=== PATIENT | male | born 1995 | race Two or more races ===

== ENCOUNTER 2023-10-04 18:26 | Emergency (ER) | payer BC, OTHER ==
[~2023-10-04] VITALS: Ht 182.9 cm; Wt 85.6 kg
[2023-10-05] MEDS: CEPHALEXIN 250 MG CAP PO ONE (00:30)
[2023-10-05] MEDS: TETANUS-DIPTH-ACEL PERTUSSIS 0.5ML SYR Tdap IM ONE (00:30)
[2023-10-05] MEDS: MUPIROCIN 2% OINT 15gm or 22gm TOP ONE (00:30)
[2023-10-05] MEDS ORDERED: MUPI2OIN2 EX (00:32)
[2023-10-05] MEDS ORDERED: CEPH500C PO (00:32)
[2023-10-05] MEDS ORDERED: HYDR-4902 PO (00:32)
[2023-10-05 01:12] VITALS: BP 138/65; PULSE 67; RESP 20; TEMP 97.8; O2SAT 99
[2023-10-05] MEDS: HYDROcodone-ACET 5/325MG TAB PO ONE (01:22)
[2023-10-05] MEDS: KETOROLAC TROMETH 60MG/2ML VIAL IM ONE (01:23)
[2023-10-05] MEDS: DexAMETHasone SOD PHOS 10MG/1ML VIAL INJ IM ONE (01:23)
== END 2023-10-05 01:49 | disposition home or self-care (01) ==
LOC: ER 18:26
DX: S43.102A Unspecified dislocation of left acromioclavicular joint, initial encounter (principal); S40.012A Contusion of left shoulder, initial encounter; S80.11XA Contusion of right lower leg, initial encounter; Z79.899 Other long term (current) drug therapy; W18.39XA Other fall on same level, initial encounter; Y93.51 Activity, roller skating (inline) and skateboarding; Y92.89 Other specified places as the place of occurrence of the external cause; Y99.8 Other external cause status
CPT/HCPCS: 73030; 73590; 90471; 90715; 96372; 99284; J1100; J1885

== ENCOUNTER 2025-02-02 04:17 | Inpatient (IN) | payer BC ==
[~2025-02-02] VITALS: Ht 182.9 cm; Wt 82.0 kg
[2025-02-02] VITALS (7 sets, daily range): BP systolic 103–111; BP diastolic 47–64; PULSE 16–66; RESP 16–20; TEMP 97.3–98; O2SAT 96–97
[~2025-02-02 04:17] MED LIST: CEPH500C PO; HYDR-4902 PO; MUPI2OIN2 EX
--- NOTE | 2025-02-02 06:11 | DVH ---
EXAM: XR Chest, 1 View CLINICAL INDICATION: Pain TECHNIQUE: Frontal view of the chest. COMPARISON: No relevant prior studies available. FINDINGS: LUNGS AND PLEURAL SPACES: Unremarkable. No consolidation. No pneumothorax. HEART: Unremarkable. No cardiomegaly. MEDIASTINUM: Unremarkable. Normal mediastinal contour. BONES/JOINTS: Unremarkable. No acute fracture. IMPRESSION: No acute cardiopulmonary process.
[2025-02-02 06:23] LABS: Hematocrit 38.9 % (41.0-53.0); Hemoglobin 13.9 g/dL (13.5-17.5); Mean Corpuscular Hemoglobin 31.2 pg (28.0-32.0); Mean Corpuscular Volume 87.4 fL (80.0-100.0); Nucleated Red Blood Cells % 0.0 %
[2025-02-02 06:26] LABS: Chloride 104 mmol/L (98-107); Potassium 4.1 mmol/L (3.5-5.1); Sodium 140 mmol/L (136-145)
[2025-02-02 06:27] LABS: Anion Gap 8 (5-15); Calcium 10.0 mg/dL (8.7-10.4); Carbon Dioxide 28 mmol/L (20-31)
[2025-02-02 06:32] LABS: BUN/Creatinine Ratio 14.8 (10.0-20.0); Blood Urea Nitrogen 19 mg/dL (9-23); Glucose 94 mg/dL (74-106)
--- NOTE | 2025-02-02 06:59 | ED.PDOC ---
History of Present Illness HPI Comments 29-year-old male presents to the ER with prior surgical history of appendectomy in the chief complaint of chest pain for two weeks. Patient reports that the chest pain has been on and off and mostly tolerable, during the two weeks. Patient states that he went to urgent care two weeks ago with x-ray and labs, has a follow up appointment tomorrow at 02/03/2025. Patient states that he is currently here due from having an onset of chest pain this morning at work on the left side of the chest. Denies chills, fever, N/V/D, SOB. No other associated symptoms, modifiers, recent injuries or sick contacts present at this time. Chief Complaint: Chest Pain Time Seen by MD: 06:35 Reviewed Notes: Nurses Notes, Medications, Allergies Allergies: Coded Allergies: NO KNOWN ALLERGIES (Unverified , 10/04/23) Home Meds Active Scripts Mupirocin (Pseudomonas Fluores (Mupirocin) 2 % Oin, 1 APPLIC EX TID for 10 Days, #15 MG Prov:LIANGMARKALDA Q ELECTRICAL LOGGING ENGINEER 10/05/23 Hydrocodone-Acetaminophen (Hydrocodone Bitartrate/AC 5-325 mg) 1 Tab Tab, 1 TAB PO Q6HPRN PRN, #10 TAB Prov:LIANGNORALDA Q [employer]LECTRICAL LOGGING ENGINEER 10/05/23 Cephalexin Monohydrate (Cephalexin) 500 Mg Cap, 1 CAP PO QID for 10 Days, #40 CAP Prov:LIANGNORALDA Q ELECTRICAL LOGGING ENGINEER 10/05/23 Information Source: Patient Mode of Arrival: Ambulatory Severity: Moderate Timing: Weeks Duration: Since onset Prehospital treatment: None Past Medical History PAST MEDICAL HISTORY: Denies Surgical History: Appendectomy Family History Family History: Reviewed,noncontributory to illness, Unknown Social History Smoker: Non-Smoker Alcohol: Denies ETOH Use Drugs: Denies Drug Use Lives In: Home Constitutional: denies: chills, diaphoresis, fatigue, fever, malaise, sweats, weakness, others EENTM: denies: blurred vision, double vision, ear bleeding, ear discharge, ear drainage, ear pain, ear ringing, eye pain, eye redness, hearing loss, mouth pain, mouth swelling, nasal discharge, nose bleeding, nose congestion, nose pain, photophobia, tearing, throat pain, throat swelling, voice changes, others Respiratory: denies: cough, hemoptysis, orthopnea, SOB at rest, shortness of breath, SOB with excertion, stridor, wheezing, others Cardiovascular: reports: chest pain (For two weeks, on and off); denies: dizzy spells, diaphoresis, Dyspnea on exertion, edema, irregular heart beat, left arm pain, lightheadedness, palpitations, PND, syncope, others Gastrointestinal: denies: abdomen distended, abdominal pain, blood streaked bowels, constipated, diarrhea, dysphagia, difficulty swallowing, hematemesis, melena, nausea, poor appetite, poor fluid intake, rectal bleeding, rectal pain, vomiting, others Genitourinary: denies: burning, dysuria, flank pain, frequency, hematuria, incontinence, penile discharge, penile sore, pain, testicle pain, testicle swelling, urgency, others Neurological: denies: dizziness, fainting, headache, left sided numbness, left sided weakness, numbness, paresthesia, pre-existing deficit, right sided numbness, right sided weakness, seizure, speech problems, tingling, tremors, weakness, others Musculoskeletal: denies: back pain, gout, joint pain, joint swelling, muscle pain, muscle stiffness, neck pain, others Integumetry: denies: bruises, change in color, change in hair/nails, dryness, laceration, lesions, lumps, rash, wounds, others Allergic/Immunocompromised: denies: Difficulty Healing, Frequent Infections, Hives, Itching, others Hematologic/Lymphatic: denies: anemia, blood clots, easy bleeding, easy bruising, swollen glands, others Endocrine: denies: excessive hunger, excessive sweating, excessive thirst, excessive urination, flushing, intolerance to cold, intolerance to heat, unexplained weight gain, unexplained weight loss, others Psychiatric: denies: anxiety, bipolar disorder, depression, hopeless, panic disorder, schizophrenia, sleepless, suicidal, others All Other Systems: Reviewed and Negative Physical Exam General Appearance: Moderate Distress, Normal HEENT: Normal ENT Inspection, Pharynx Normal, TMs Normal Neck: Full Range of Motion, Non-Tender, Normal, Normal Inspection Respiratory: Chest Non-Tender, Lungs Clear, No Accessory Muscle Use, No Respiratory Distress, Normal Breath Sounds Cardiovascular: No Edema, No JVD, No Murmur, No Gallop, Normal Peripheral Pulses, Regular Rate/Rhythm Breast Exam: Deferred Gastrointestinal: No Organomegaly, Non Tender, No Pulsatile Mass, Normal Bowel Sounds, Soft Genitalia: Deferred Pelvic: Deferred Rectal: Deferred Extremities: No calf tenderness, Normal capillary refill, Normal inspection, Normal range of motion, Non-tender, No pedal edema Musculoskeletal : Apperance: Normal Neurologic: Alert, dragger out II-XII nml as Tested, No Motor Deficits, Normal Affect, Normal Mood, No Sensory Deficits Cerebellar Function: Normal Reflexes: Normal Skin: Dry, Normal Color, Warm Peripheral Pulses: 3+ Radial (R), 3+ Radial (L) Lymphatic: No Adenopathy Was a procedure done? Was a procedure done?: No Differential Dx Considerations may include: Anemia Electrolyte imbalance X-Ray, Labs, Meds, VS Vital Signs Date Time Temp Pulse Resp B/P (MAP) Pulse Ox O2 Delivery O2 Flow Rate FiO2 02/02/25 07:36 54 02/02/25 07:36 98.7 54 17 110/64 (79) 100 98.7 02/02/25 04:26 55 02/02/25 04:25 98.6 59 20 119/64 (82) 100 98.6 Lab Test 02/02/25 05:24 02/02/25 04:30 Range/Units White Blood Count 4.7 4.4-10.8 10^3/uL Red Blood Count 4.45 L 4.5-5.90 10^6/uL Hemoglobin 13.9 13.5-17.5 g/dL Hematocrit 38.9 L 41.0-53.0 % Mean Corpuscular Volume 87.4 80.0-100.0 fL Mean Corpuscular Hemoglobin 31.2 28.0-32.0 pg Mean Corpuscular Hemoglobin Concent 35.7 32.0-36.0 g/dL Red Cell Distribution Width 13.4 11.8-14.3 % Platelet Count 198 140-450 10^3/uL Mean Platelet Volume 8.3 6.9-10.8 fL Neutrophils (%) (Auto) 60.4 37.0-80.0 % Lymphocytes (%) (Auto) 28.6 10.0-50.0 % Monocytes (%) (Auto) 9.4 0.0-12.0 % Eosinophils (%) (Auto) 0.7 0.0-7.0 % Basophils (%) (Auto) 0.9 0.0-2.0 % Neutrophils # (Auto) 2.8 1.6-8.6 10 ^3/uL Lymphocytes # (Auto) 1.3 0.4-5.4 10 ^3/uL Monocytes # (Auto) 0.4 0-1.3 10 ^3/uL Eosinophils # (Auto) 0 0-0.8 10 ^3/uL Basophils # (Auto) 0 0-0.2 10 ^3/uL Nucleated Red Blood Cells 0.0 % D-Dimer, Quantitative 1.23 H 0.0-0.49 mg/L FEU Sodium Level 140 136-145 mmol/L Potassium Level 4.1 3.5-5.1 mmol/L Chloride Level 104 98-107 mmol/L Carbon Dioxide Level 28 20-31 mmol/L Anion Gap 8 5-15 Blood Urea Nitrogen 19 9-23 mg/dL Creatinine 1.28 0.700-1.30 mg/dL Glomerular Filtration Rate Calc 77 >90 mL/min BUN/Creatinine Ratio 14.8 10.0-20.0 Serum Glucose 94 74-106 mg/dL Calcium Level 10.0 8.7-10.4 mg/dL Troponin I High Sensitivity < 3 L < 3 L </=54 ng/L Current Medications Medications (Trade) Dose Ordered Sig/Tunde Route Start Time Stop Time Status Last Admin Aspirin 325 mg ONCE ONCE PO 02/02/25 07:00 02/02/25 07:01 DC 02/02/25 07:25 Patient alert. Complaining of chest pain. Has been having these symptoms for many weeks. Vitals stable. Was given aspirin. D-dimer elevated. Cardiac marker within normal limits. CT angiogram. WBC within normal limits. Hemoglobin within normal limits. EKG reviewed does not show any acute changes. Stress test. Echocardiogram. Explained to the patient. Continue monitoring. Time of 1ST Reevaluation: 07:05 Reevaluation 1ST: Unchanged Patient Education/Counseling: Diagnosis, Treatment, Prognosis Family Education/Counseling: No Family Present SEPSIS Sepsis Screen Date sepsis recognized/suspect: Feb 02, 2025 Time Sepsis recognized/suspect: 423 Recent Procedure: No On Antibiotic Therapy: No Respiratory Rate >20: No Heart Rate >90: No Temp<36 C (96.8 F) or >38.3 C: No SBP <90 or MAP <65 mmHG: No New Acute Mental Status Change: No Is the patient on CPAP, BIPAP,: No Physician Orders Electrocardigram (02/02/25 04:22) Electrocardigram (02/02/25 05:22) Electrocardigram (02/02/25 07:22) Chest Portable (02/02/25 05:42) Vital Signs Date Time Temp Pulse Resp B/P (MAP) Pulse Ox O2 Delivery O2 Flow Rate FiO2 02/02/25 07:36 54 02/02/25 07:36 98.7 54 17 110/64 (79) 100 98.7 02/02/25 04:26 55 02/02/25 04:25 98.6 59 20 119/64 (82) 100 98.6 Laboratory Tests Test 02/02/25 05:24 White Blood Count 4.7 10^3/uL (4.4-10.8) Medications Medications Dose Ordered Sig/Tunde Route Start Time Stop Time Status Last Admin Dose Admin Aspirin 325 mg ONCE ONCE PO 02/02/25 07:00 02/02/25 07:01 DC 02/02/25 07:25 Departure 1 Departure Time of Disposition: 07:47 Impression: Primary Impression: Chest pain of unknown etiology Disposition: ADMITTED INPATIENT Admit to: Med Surg Condition: Guarded Critical Care Note Critical Care Time?: Yes (90 min-critical care time only) Critical care comment: Continue monitoring Stability Stability form required: No Heart Score Heart Score: Heart Score Response (Comments) Value History Slightly Suspicious 0 EKG Normal 0 Age <45 0 Risk Factors No known risk factors 0 Troponin Normal limit 0 Total 0 I personally scribed for JAYLEN VILLAFANA MD ([email or web address]) on 02/02/25 at 06:59. Electronically submitted by Kayden Baptiste ([email or web address]). JAYLEN VILLAFANA MD Feb 02, 2025 06:59
[2025-02-02] MEDS: LORazepam 0.5 MG TAB PO ONE (07:25)
[2025-02-02] MEDS: IOHEXOL 350 MG/ML 100ML IJ ONE (07:57)
--- NOTE | 2025-02-02 09:19 | DVH ---
CLINICAL INFORMATION: Pulmonary embolism. TECHNIQUE: Axial CTA images of the chest were obtained after the uneventful administration of 100 mL of Omnipaque 350 IV contrast. Coronal and sagittal reformatted images and MIP images were obtained, r eviewed, and stored. One or more of the following dose reduction techniques were used: Automated expo sure control. Adjustment of mA and/or kV according to patient size. CTDIvol = 12.51, 35.52, 0.07, 0. 07 mGy DLP = 501.13 mGy-cm COMPARISON: Same day chest radiograph. FINDINGS: Pulmonary arteries: No central or lobar pulmonary embolism. Evaluation for segmental or subsegmental pulmonary emboli is limited due to respiratory motion artifact. Aorta: No aneurysm or dissection. Cardiac: Heart size is within normal limits. No significant coronary artery calcification. Mediastinum/margaux: Mild residual thymic tissue in the anterior mediastinum. No mediastinal or hilar ly mphadenopathy. Lungs: Lungs are clear. Chest wall: No mass or other abnormality. Upper abdomen: Visualized structures in the upper abdomen are unremarkable, although evaluation of th e parenchymal organs is limited on arterial phase images. Bones: No acute fracture or suspicious intraosseous lesions. IMPRESSION: 1. No central or lobar pulmonary embolism. Evaluation for segmental or subsegmental pulmonary emboli is limited due to respiratory motion artifact. 2. Otherwise, no evidence of acute disease in the chest.
[2025-02-02] MEDS ORDERED: NITROGLYCERIN 0.4 MG SL TAB SL PRN (09:45)
[2025-02-02] MEDS ORDERED: ACETAMINOPHEN 325 MG TAB PO PRN (09:45)
[2025-02-02] MEDS ORDERED: ONDANSETRON HCL 4 MG/2 ML VIAL IV PRN (09:45)
[2025-02-02] MEDS ORDERED: MORPHINE SULFATE INJ 2 MG/ml SYRG IV PRN (09:45)
[2025-02-02] MEDS ORDERED: DOCUSATE SOD 100 MG CAP PO PRN (09:45)
--- NOTE | 2025-02-02 09:52 | DVHHP2 ---
History of Present Illness Reason for Visit: Chest pain History of Present Illness Charlie Rodriguez is a 29-year-old male with past medical history of hyperlipidemia that he is not medicated for, came to the hospital for chest pain. Patient states he has been experiencing intermittent chest pain for about 2 weeks. When he is having the pain he states he becomes short of breath easily and it worsens with activity. He states the chest pain comes at times of rest and with activity. Patient is bradycardic, but he states he believes he usually has a low heart rate, VS stable. Denies any dizziness, syncopal episodes, or palpitations. Cardiovascular: hyperipidemia Past Surgical History: Appendectomy Smoke: <1 pack per day (Vape) ALCOHOL: rare Drugs: Marijuana Lives: Alone Domestic Violence: Neg Review of Systems Constitutional: No: Fever, Chills, Sweats, Weakness, Malaise, Other Eyes: No: Pain, Vision change, Conjunctivae inflammation, Eyelid inflammation, Other, Redness ENT: No: Ear pain, Ear discharge, Nose pain, Nose discharge, Nose congestion, Mouth pain, Mouth swelling, Throat pain, Throat swelling, Other Respiratory: Shortness of breath, SOB with excertion; No: Cough, Dry, Wheezing, Hemoptysis, Pleuritic Pain, Sputum, Wheezing, Other Cardiovascular: Chest Pain; No: Palpitations, Orthopnea, Paroxysmal Noc. Dyspnea, Edema, Lt Headedness, Other Gastrointestinal: No: Nausea, Vomiting, Abdominal Pain, Diarrhea, Constipation, Melena, Hematochezia, Other Genitourinary: No Dysuria, No Frequency, No Incontinence, No Hematuria, No Retention, No Other Musculoskeletal: No: other, neck pain, shoulder pain, arm pain, back pain, hand pain, leg pain, foot pain Skin: No: Rash, Lesions, Jaundice, Bruising, Other Neurological: No: Weakness, Numbness, Incoordination, Change in speech, Confusion, Seizures, Other Allergies: Coded Allergies: NO KNOWN ALLERGIES (Unverified , 10/04/23) Medications Current Medications Medications Dose Ordered Sig/Tunde Route Start Time Stop Time Status Last Admin Dose Admin Sodium Chloride 10 ml Q8HR IV 02/02/25 14:00 UNV Acetaminophen/ Hydrocodone Bitart 1 tab Q4HP PRN PO 02/02/25 09:45 UNV Ondansetron HCl 4 mg Q4HP PRN IV 02/02/25 09:45 UNV Docusate Sodium 100 mg BIDPRN PRN PO 02/02/25 09:45 UNV Acetaminophen 650 mg Q6HP PRN PO 02/02/25 09:45 UNV Nitroglycerin 0.4 mg Q5MINP PRN SL 02/02/25 09:45 UNV Morphine Sulfate 2 mg Q30M PRN IV 02/02/25 09:45 UNV Exam Vital Signs Vital Signs Date Time Temp Pulse Resp B/P (MAP) Pulse Ox O2 Delivery O2 Flow Rate FiO2 02/02/25 08:27 97.9 53 16 120/67 (84) 97 97.9 02/02/25 08:27 Room Air* 0 21 General Appearance: Alert, Oriented X3, Cooperative, mild distress HEENT: Atraumatic, PERRLA Respiratory: Clear to auscultation, Normal air movement Cardiovascular: Normal S1, Normal S2, No murmurs, Other (SB-SR) Abdominal: Normal bowel sounds, Soft, No tenderness, No hepatospenomegaly Extremities: No clubbing, No cyanosis, No edema, Normal pulses, No tenderness/swelling Skin: No rashes, No breakdown, No significant lesion Neuro: Normal gait, Normal speech, Strength at 5/5 X4 ext Psych/Mental Status: Mental status NL, Mood NL Labs/Xrays Labs Test 02/02/25 05:24 Range/Units White Blood Count 4.7 4.4-10.8 10^3/uL Red Blood Count 4.45 L 4.5-5.90 10^6/uL Hemoglobin 13.9 13.5-17.5 g/dL Hematocrit 38.9 L 41.0-53.0 % Mean Corpuscular Volume 87.4 80.0-100.0 fL Mean Corpuscular Hemoglobin 31.2 28.0-32.0 pg Mean Corpuscular Hemoglobin Concent 35.7 32.0-36.0 g/dL Red Cell Distribution Width 13.4 11.8-14.3 % Platelet Count 198 140-450 10^3/uL Mean Platelet Volume 8.3 6.9-10.8 fL Neutrophils (%) (Auto) 60.4 37.0-80.0 % Lymphocytes (%) (Auto) 28.6 10.0-50.0 % Monocytes (%) (Auto) 9.4 0.0-12.0 % Eosinophils (%) (Auto) 0.7 0.0-7.0 % Basophils (%) (Auto) 0.9 0.0-2.0 % Neutrophils # (Auto) 2.8 1.6-8.6 10 ^3/uL Lymphocytes # (Auto) 1.3 0.4-5.4 10 ^3/uL Monocytes # (Auto) 0.4 0-1.3 10 ^3/uL Eosinophils # (Auto) 0 0-0.8 10 ^3/uL Basophils # (Auto) 0 0-0.2 10 ^3/uL Nucleated Red Blood Cells 0.0 % D-Dimer, Quantitative 1.23 H 0.0-0.49 mg/L FEU Sodium Level 140 136-145 mmol/L Potassium Level 4.1 3.5-5.1 mmol/L Chloride Level 104 98-107 mmol/L Carbon Dioxide Level 28 20-31 mmol/L Anion Gap 8 5-15 Blood Urea Nitrogen 19 9-23 mg/dL Creatinine 1.28 0.700-1.30 mg/dL Glomerular Filtration Rate Calc 77 >90 mL/min BUN/Creatinine Ratio 14.8 10.0-20.0 Serum Glucose 94 74-106 mg/dL Calcium Level 10.0 8.7-10.4 mg/dL Troponin I High Sensitivity < 3 L </=54 ng/L EXAM: XR Chest, 1 View FINDINGS: LUNGS AND PLEURAL SPACES: Unremarkable. No consolidation. No pneumothorax. HEART: Unremarkable. No cardiomegaly. MEDIASTINUM: Unremarkable. Normal mediastinal contour. BONES/JOINTS: Unremarkable. No acute fracture. IMPRESSION: No acute cardiopulmonary process. CT Angio of Chest FINDINGS: Pulmonary arteries: No central or lobar pulmonary embolism. Evaluation for segmental or subsegmental pulmonary emboli is limited due to respiratory motion artifact. Aorta: No aneurysm or dissection. Cardiac: Heart size is within normal limits. No significant coronary artery calcification. Mediastinum/margaux: Mild residual thymic tissue in the anterior mediastinum. No mediastinal or hilar lymphadenopathy. Lungs: Lungs are clear. Chest wall: No mass or other abnormality. Upper abdomen: Visualized structures in the upper abdomen are unremarkable, although evaluation of the parenchymal organs is limited on arterial phase images. Bones: No acute fracture or suspicious intraosseous lesions. IMPRESSION: 1. No central or lobar pulmonary embolism. Evaluation for segmental or subsegmental pulmonary emboli is limited due to respiratory motion artifact. 2. Otherwise, no evidence of acute disease in the chest. SEPSIS Sepsis Screen Date sepsis recognized/suspect: Feb 02, 2025 Time Sepsis recognized/suspect: 830 Recent Procedure: No On Antibiotic Therapy: No Respiratory Rate >20: No Heart Rate >90: No Temp<36 C (96.8 F) or >38.3 C: No SBP <90 or MAP <65 mmHG: No New Acute Mental Status Change: No Is the patient on CPAP, BIPAP,: No Physician Orders Electrocardigram (02/02/25 04:22) Electrocardigram (02/02/25 05:22) Electrocardigram (02/02/25 07:22) Chest Portable (02/02/25 05:42) Echo 2d Mode Cardiac Dop (02/02/25 07:48) Ct Angio Chest Contrast (02/02/25 07:48) Urinalysis (02/02/25 08:42) Admit (02/02/25 09:41) Code Status (02/02/25 09:41) Sodium Chloride Lock (Saline Lock Ns) (02/02/25 14:00) Hydrocodone-Acet 5/325mg Tab (Clio 5/32 (02/02/25 09:45) Ondansetron Hcl (Zofran) (02/02/25 09:45) Docusate Sodium Capsule (Colace Capsule) (02/02/25 09:45) Complete Blood Count (02/03/25 04:00) Comprehensive Metabolic Panel (02/03/25 04:00) Condition: Serious (02/02/25 09:41) Acetaminophen Tablet (Tylenol Tablet) (02/02/25 09:45) Nitroglycerin Sublingual (Ntrostat Subli (02/02/25 09:45) Morphine Sulfate Injection (02/02/25 09:45) Stat Ekg For Chest Pain (02/02/25 09:41) Notify Of Changes From Base (02/02/25 09:41) Machine Assistant For 24 Hours (02/02/25 09:41) Emergency Dysrhythmia Protocol (02/02/25 09:41) Rhythm Strips Once Every Shift (02/02/25 09:41) Oxygen By Nasal Cannula (02/02/25 09:41) * Cardiology Consult (02/02/25 09:41) Bilat Lower Dvt (02/02/25 09:44) Vital Signs Date Time Temp Pulse Resp B/P (MAP) Pulse Ox O2 Delivery O2 Flow Rate FiO2 02/02/25 08:27 97.9 53 16 120/67 (84) 97 97.9 02/02/25 08:27 16 16 97 Room Air* 0 21 02/02/25 07:36 54 02/02/25 07:36 98.7 54 17 110/64 (79) 100 98.7 02/02/25 04:26 55 02/02/25 04:25 98.6 59 20 119/64 (82) 100 98.6 Laboratory Tests Test 02/02/25 05:24 White Blood Count 4.7 10^3/uL (4.4-10.8) Medications Medications Dose Ordered Sig/Tunde Route Start Time Stop Time Status Last Admin Dose Admin Aspirin 325 mg ONCE ONCE PO 02/02/25 07:00 02/02/25 07:01 DC 02/02/25 07:25 325 MG Assessment/Plan Assessment/Plan Assessment: Chest pain of unknown etiology, Possible PE, Elevated D-dimer, R/O DVT, Plan: Admit to Tele, Cardiology consult, CT angio of chest, ECHO, Bilateral lower extremity ultrasound, Breathing treatments as needed, Supplemental oxygen as needed, Lipid panel, TSH, A1c, Plan discussed with: Patient My Orders Orders - GRETEL CHIN [employer] FIN[employer] Procedure Category Date Status Time Admit ADMIT 02/02/25 Transmitted 09:41 Code Status CODE 02/02/25 Transmitted 09:41 Sodium Chloride Lock PHA 02/02/25 Logged (Saline Lock Ns) 14:00 Hydrocodone-Acet PHA 02/02/25 Logged 5/325mg Tab (Clio 09:45 Ondansetron Hcl PHA 02/02/25 Logged (Zofran) 09:45 Docusate Sodium PHA 02/02/25 Logged Capsule (Colace 09:45 Complete Blood Count LAB 02/03/25 Verified 04:00 Comprehensive LAB 02/03/25 Verified Metabolic Panel 04:00 Condition: Serious [facility] 02/02/25 Transmitted 09:41 Acetaminophen Tablet PHA 02/02/25 Logged (Tylenol Tablet) 09:45 Nitroglycerin [facility] 02/02/25 Logged Sublingual (Ntrostat 09:45 Morphine Sulfate [facility] 02/02/25 Logged Injection 09:45 Stat Ekg For Chest [facility] 02/02/25 Transmitted Pain 09:41 Notify Of Changes [facility] 02/02/25 Transmitted From Base 09:41 Machine Assistant For [facility] 02/02/25 Transmitted 24 Hours 09:41 Emergency Dysrhythmia [facility] 02/02/25 Transmitted Protocol 09:41 Rhythm Strips Once [facility] 02/02/25 Transmitted Every Shift 09:41 Oxygen By Nasal RT 02/02/25 Transmitted Cannula 09:41 * Cardiology Consult [facility]S 02/02/25 Transmitted 09:41 Bilat Lower Dvt US 02/02/25 Verified 09:44 Date of Service: Feb 02, 2025 Billing Provider: GRETEL CHIN Common Visit Codes: [id number] INP/OBS CARE (MOD) GRETEL CHIN Feb 02, 2025 09:52
--- NOTE | 2025-02-02 11:06 | DVH ---
Bilateral lower extremity venous duplex Clinical History: DVT Comparison: None Technique: Duplex Doppler evaluation of the deep venous systems of both lower extremities from the common femora l veins to the popliteal veins including color Doppler and spectral/pulsed waveform analysis was perf ormed. Findings: RIGHT SIDE: The common femoral vein demonstrates appropriate compressibility and waveform variability. There is compressibility/patency of the great saphenous vein at the proximal thigh. The femoral vein demonstrates appropriate compressibility and waveform variability. The deep femoral vein demonstrates appropriate compressibility and waveform variability. The popliteal vein demonstrates appropriate compressibility and waveform variability. There is normal compressibility at the tibioperoneal trunk. LEFT SIDE: The common femoral vein demonstrates appropriate compressibility and waveform variability. There is compressibility/patency of the great saphenous vein at the proximal thigh. The femoral vein demonstrates appropriate compressibility and waveform variability. The deep femoral vein demonstrates appropriate compressibility and waveform variability. The popliteal vein demonstrates appropriate compressibility and waveform variability. There is normal compressibility at the tibioperoneal trunk. Impression: No right or left femoropopliteal venous thrombosis.
--- NOTE | 2025-02-02 12:10 | DVHINCON2 ---
Date Seen: Feb 02, 2025 Referring Physician PETER Moore Reason for Consultation Chest pain History of Present Illness This is a pleasant 29-year-old man who presented to the emergency room with a chief complaint of chest pain since January 13, 2025. Patient reports the first time he experienced chest pain he was running at the onset of symptoms with subsequent intermittent events including the one from last night at around 0300 and one hour after lifting some boxes at work. Describes it as substernal to left-sided, non-radiating, dull/sharp in nature, and worse with inspiration and positional changes. States he works out on regular basis including running up to 2 miles at a time, calisthenics, and weight lifting. He underwent a 12 lead electrocardiogram revealing a sinus bradycardia rhythm without evidence of ST-T wave changes suggestive of ischemia. Serial troponin levels are negative. Significant past medical history includes a bicuspid aortic valve diagnosed as a child, status post appendectomy, and current tobacco use including a history of five-pack years. Past Medical History Past medical history reviewed. No other significant than mentioned above. Past Surgical History Appendectomy Family History: Patient reports no known family medical history. Family History Family history reviewed. Not significant for a bicuspid aortic valve. Social History Denies the use of illicit drugs or alcohol. Admits to tobacco use, see HPI. Allergies: Coded Allergies: NO KNOWN ALLERGIES (Unverified , 10/04/23) Home Meds Active Scripts Mupirocin (Pseudomonas Fluores (Mupirocin) 2 % Oin, 1 APPLIC EX TID for 10 Days, #15 MG Prov:LIANG,NORALDA Q DIRECTOR WOM[employer] 10/05/23 Cephalexin Monohydrate (Cephalexin) 500 Mg Cap, 1 CAP PO QID for 10 Days, #40 CAP Prov:LIANG,NORALDA Q DIRECT[employer]OM[employer] 10/05/23 Home Meds Home medications reviewed. Current Medications Current Medications Medications (Trade) Dose Ordered Sig/Tunde Route PRN Reason Start Time Stop Time Status Last Admin Sodium Chloride (Saline Lock Ns) 10 ml Q8HR IV 02/02/25 14:00 Acetaminophen/ Hydrocodone Bitart ([place] 5/325MG Tab) 1 tab Q4HP PRN PO MODERATE PAIN (4-6 PAIN SCALE) 02/02/25 09:45 Ondansetron HCl (Zofran) 4 mg Q4HP PRN IV NAUSEA / VOMITING 02/02/25 09:45 Docusate Sodium (Colace Capsule) 100 mg BIDPRN PRN PO FOR CONSTIPATION 02/02/25 09:45 Acetaminophen (Tylenol Tablet) 650 mg Q6HP PRN PO PAIN SCALE 1-3 OR TEMP>100.4 02/02/25 09:45 Nitroglycerin (Ntrostat Sublingual) 0.4 mg Q5MINP PRN SL FOR CHEST PAIN 02/02/25 09:45 Morphine Sulfate 2 mg Q30M PRN IV FOR CHEST PAIN 02/02/25 09:45 Review of Systems Constitutional: No symptom reported Ears, Nose, & Throat: No symptom reported Eyes: No symptom reported Neurological: No symptoms reported Pulmonary/Respiratory: No symptom reported Cardiovascular: Chest pain Gastrointestinal: No symptom reported Genitourinary: No symptom reported Musculoskeletal: No symptom reported Skin: No symptom reported Psychiatric: No symptom reported Endocrine: No symptom reported Hemotologic/Lymphatic: No symptom reported Vital Signs Vital Signs Date Time Temp Pulse Resp B/P (MAP) Pulse Ox O2 Delivery O2 Flow Rate FiO2 02/02/25 11:00 98.0 50 16 108/64 (79) 97 98.0 02/02/25 08:27 Room Air* 0 21 Physical Exam General Appearance: Cooperative. Well developed. Well nourished. In no acute distress Head Exam: Normal inspection Neck Exam: Normal inspection. Non-tender. Normal alignment Pulmonary/Respiratory: Chest non-tender. Clear bilateral breath sounds Cardiovascular/Chest: Regular rate and rhythm. S1, S2. Sinus bradycardia rhythm. No murmurs. No JVD. Peripheral Pulses: 2+ Radial (R). 2+ Radial (L). 2+ Pedal (R). 2+ Pedal (L) Abdominal Exam: Normal bowel sounds. Soft. Nontender. Ankle Exam: Negative ankle edema Lower extremities: Negative lower extremity edema Neuro/Mental Status: A&O x4. Coherent Thoughts/Psych: Normal thought pattern. Appropriate mood and affect. Good judgement and insight Appearance: In no acute distress Skin Exam: Normal inspection. Normal color. Warm. Dry Labs/Diagnostic Data Labs Test 02/02/25 05:24 Range/Units White Blood Count 4.7 4.4-10.8 10^3/uL Red Blood Count 4.45 L 4.5-5.90 10^6/uL Hemoglobin 13.9 13.5-17.5 g/dL Hematocrit 38.9 L 41.0-53.0 % Mean Corpuscular Volume 87.4 80.0-100.0 fL Mean Corpuscular Hemoglobin 31.2 28.0-32.0 pg Mean Corpuscular Hemoglobin Concent 35.7 32.0-36.0 g/dL Red Cell Distribution Width 13.4 11.8-14.3 % Platelet Count 198 140-450 10^3/uL Mean Platelet Volume 8.3 6.9-10.8 fL Neutrophils (%) (Auto) 60.4 37.0-80.0 % Lymphocytes (%) (Auto) 28.6 10.0-50.0 % Monocytes (%) (Auto) 9.4 0.0-12.0 % Eosinophils (%) (Auto) 0.7 0.0-7.0 % Basophils (%) (Auto) 0.9 0.0-2.0 % Neutrophils # (Auto) 2.8 1.6-8.6 10 ^3/uL Lymphocytes # (Auto) 1.3 0.4-5.4 10 ^3/uL Monocytes # (Auto) 0.4 0-1.3 10 ^3/uL Eosinophils # (Auto) 0 0-0.8 10 ^3/uL Basophils # (Auto) 0 0-0.2 10 ^3/uL Nucleated Red Blood Cells 0.0 % D-Dimer, Quantitative 1.23 H 0.0-0.49 mg/L FEU Sodium Level 140 136-145 mmol/L Potassium Level 4.1 3.5-5.1 mmol/L Chloride Level 104 98-107 mmol/L Carbon Dioxide Level 28 20-31 mmol/L Anion Gap 8 5-15 Blood Urea Nitrogen 19 9-23 mg/dL Creatinine 1.28 0.700-1.30 mg/dL Glomerular Filtration Rate Calc 77 >90 mL/min BUN/Creatinine Ratio 14.8 10.0-20.0 Serum Glucose 94 74-106 mg/dL Calcium Level 10.0 8.7-10.4 mg/dL Troponin I High Sensitivity < 3 L </=54 ng/L Assessment Non-cardiac chest pain, likely musculoskeletal Bicuspid aortic valve with mild regurgitation Sinus bradycardia Nicotine dependance Plan/Recommendation (Dr. Moya) Patient seen and evaluated by Dr. Moya at bedside. The patient presents with non-cardiac chest pain, a twelve lead electrocardiogram without evidence of ischemia, negative serial troponin levels, and a Heart Score of 1 point placing him at a low-risk for major cardiac events. We will initiate NSAIDs prn for pain control. Follow-up with a primary ship fitter as outpatient within 3-4 weeks given history of bicuspid aortic valve with recommendations for a repeat TTE in 6 months. There is no further cardiac work-up indicated at this time. Kindly call with any questions or concerns. Thank you for allowing us to participate in this patient's care. This medical document was created using an electronic medical record system with voice recognition software and computerized dictation system. Although this document has been carefully reviewed, there might still be some phonetic and typographical errors. Occasional wrong-word or ``sound-alike substitutions may have occurred due to the inherent limitations of voice recognition software. These areas are purely typographical due to imperfections of the software programs and do not reflect any compromise in the patient's medical care. Please read the chart carefully and recognize, using context, where these substitutions have occurred. Plan discussed with: Patient, Other NYHA Physical activity limitations: NA Date of Service: Feb 02, 2025 Billing Provider: VILMA DAVID Cardiology Common Codes: 41213-[id number] INP/OBS CARE (High) VILMA DAVID Feb 02, 2025 12:10
[2025-02-02] MEDS: SODIUM CHLOR 0.9% PF (SALINE LOCK) 10ML VIAL/SYR IV SCH (14:13)
[2025-02-02 14:59] LABS: Triglycerides 52 mg/dL (< 150)
[2025-02-02 15:01] LABS: Cholesterol 187 mg/dL (< 200)
[2025-02-02 15:04] LABS: HDL Cholesterol 65 mg/dL (40-59)
[2025-02-02 21:15] LABS: Urine Protein, UAD Negative (Negative)
[2025-02-03 00:57] VITALS: BP 112/63; PULSE 55; RESP 17; TEMP 98; O2SAT 98
[2025-02-03] MEDS: HYDROcodone-ACET 5/325MG TAB PO PRN (00:58)
[2025-02-03 05:00] VITALS: BP 105/67; PULSE 68; RESP 16; TEMP 98; O2SAT 95
[2025-02-03 06:13] LABS: Hematocrit 40.7 % (41.0-53.0); Hemoglobin 14.1 g/dL (13.5-17.5); Mean Corpuscular Hemoglobin 30.5 pg (28.0-32.0); Mean Corpuscular Volume 88.2 fL (80.0-100.0); Nucleated Red Blood Cells % 0.1 %
[2025-02-03 06:34] LABS: Alanine Aminotransferase 11 U/L (7-40); Albumin 4.4 g/dL (3.2-4.8); Anion Gap 6 (5-15); BUN/Creatinine Ratio 12.5 (10.0-20.0); Blood Urea Nitrogen 15 mg/dL (9-23); Calcium 9.4 mg/dL (8.7-10.4); Carbon Dioxide 30 mmol/L (20-31); Chloride 105 mmol/L (98-107); Glucose 93 mg/dL (74-106); Potassium 5.1 mmol/L (3.5-5.1); Sodium 141 mmol/L (136-145); Total Protein 6.8 g/dL (5.7-8.2)
[2025-02-03 06:37] LABS: Alkaline Phosphatase 34 U/L (46-116)
[2025-02-03 06:43] LABS: Bilirubin, Total 0.8 mg/dL (0.2-1.0)
[2025-02-03 08:00] VITALS: PULSE 45; PULSE 66; RESP 16; O2SAT 98
--- NOTE | 2025-02-03 08:01 | ECG ---
[facility] Test Date: 2025-02-02 Test Time: 04:26:10 Pat Name: LEE ANN LAGOS Department: ER Room: 0218T A Gender: M [employer] Director: JUAN : 1995 Requested By: EMERGENCY EMERGENCY Order Number: [id number] Reading MD: Zac Persaud Measurements Intervals [place] Rate: 55 P: 48 NV: 164 QRS: 78 QRSD: 110 T: 59 QT: 411 QTc: 393 Interpretive Statements Sinus rhythm ST elev, probable normal early repol pattern Electronically Signed On 02-09-2025 13:59:51 PDT by Zac Persaud Please click the below link to view image of tracing.
[2025-02-03 09:00] VITALS: BP 106/65; PULSE 54; RESP 18; TEMP 98.1; O2SAT 100
[2025-02-03 13:00] VITALS: BP 122/74; PULSE 48; RESP 16; TEMP 97.6; O2SAT 100
--- NOTE | 2025-02-03 13:59 | DVHSR ---
APPROVED REPORT EXAM: Two-dimensional and M-mode echocardiogram with Doppler and color Doppler. Mitral Valve MitralMitral Stenosis E/A ratio0.02D MVAcm2 LEFT VENTRICLE The left ventricle is normal size. There is normal left ventricular wall thickness. The left ventricle is normal in structure and function. Left ventricle systolic function is normal. The Ejection Fraction is 55-60%. No regional wall motion abnormalities noted. RIGHT VENTRICLE The right ventricle is normal size. There is normal right ventricular wall thickness. The right ventricular systolic function is normal. ATRIA The left atrium size is normal. The right atrium size is normal. The interatrial septum is intact with no evidence for an atrial septal defect. MITRAL VALVE The mitral valve is normal in structure and function. There is no evidence of mitral valve prolapse. There is no mitral valve stenosis. There is no mitral valve regurgitation noted. PULMONIC VALVE The pulmonary valve is normal in structure and function. There is no pulmonic valvular regurgitation. There is no pulmonic valvular stenosis. TRICUSPID VALVE The tricuspid valve is normal in structure and function. There is no tricuspid valve regurgitation noted. There is no tricuspid valve prolapse or vegetation. There is no tricuspid valve stenosis. AORTIC VALVE The aortic valve is bicuspid. There is mild to moderate aortic regurgitation. There is no aortic valvular stenosis. There is no aortic valvular vegetation. GREAT VESSELS The aortic root is normal in size. PERICARDIAL EFFUSION There is a no pericardial effusion. Conclusion There is normal left ventricular wall thickness. The left ventricle is normal in structure and function. Left ventricle systolic function is normal. The Ejection fractiion is estimated at 60%. There is no regional LV wall motion abnormality. The aortic valve is bicuspid. There is no aortic stenosis. There is mild to moderate aortic regurgitation. There is a no pericardial effusion.
== END 2025-02-03 16:20 | disposition home or self-care (01) | DRG 313 ==
LOC: ER 04:17 → OVERFLOW 09:41 → TELE-CENTR 15:29
PROVIDERS: ADMIT Hospitalist; ATTEND Hospitalist
DX: R07.89 Other chest pain (principal); Q23.81 Bicuspid aortic valve; R79.89 Other specified abnormal findings of blood chemistry; E78.5 Hyperlipidemia, unspecified; R00.1 Bradycardia, unspecified; Z90.49 Acquired absence of other specified parts of digestive tract; Z87.891 Personal history of nicotine dependence
CPT/HCPCS: 36415; 71045; 71275; 80048; 80053; 80061; 81001; 83036; 84443; 84484; 85025; 85379; 93005; 93306; 93970; 99291; 99292; G0378